=== PATIENT | female | born 1980 | race American Indian/Alaskan Native ===

== ENCOUNTER 2017-08-08 08:50 | Emergency (ER) | payer OTHER ==
[2017-08-08 08:56] VITALS: BMI 34.0
--- NOTE | 2017-08-08 09:30 | ED PDOC ---
Arrival/HPI - General Chief Complaint: Shortness Of Breath Time Seen by Provider: 08/08/17 09:22 Historian: Patient - History of Present Illness Narrative History of Present Illness (Text): 08/08/17 09:22 37 y/o female, pmh including htn, nkda, c/o coughing on and off for the past 30 days with chest pain and exertional shortness of breath. Pt. stated that she has chronic post nasal drip, constantly has nasal congestion and runny nose, associated with dry coughing but lately been having fever and chills along with shortness of breath and chest pain upon respiration, no recent traveling, not on control medication, no leg pain or swelling, no palpitation, no rash, no night sweat, no other medical or psychological complaints. Past Medical History - Provider Review Nursing Documentation Reviewed: Yes - Cardiac Hx Hypertension: Yes - Pulmonary Hx Respiratory Disorders: No - Neurological Hx Neurological Disorder: No - HEENT Hx HEENT Disorder: No - Renal Hx Renal Disorder: No - Endocrine/Metabolic Hx Endocrine Disorders: No - Hematological/Oncological Hx Anemia: Yes - Integumentary Hx Dermatological Disorder: No - Musculoskeletal/Rheumatological Hx Musculoskeletal Disorders: No - Gastrointestinal Hx Gastrointestinal Disorders: No - Genitourinary/Gynecological Hx Genitourinary Disorders: No - Psychiatric Hx Psychophysiologic Disorder: No Hx Substance Use: No Family/Social History - Physician Review Nursing Documentation Reviewed: Yes Family/Social History: Unknown Family HX Smoking Status: Never Smoked Hx Alcohol Use: No Hx Substance Use: No Allergies/Home Meds Allergies/Adverse Reactions: Allergies No Known Allergies Allergy (Verified 08/08/17 08:56) Home Medications: Home Meds Medication Instructions Recorded Confirmed Bisoprolol/HCTZ [Ziac 5 MG-6.25 MG] 2 tab PO DAILY 08/08/17 08/08/17 Review of Systems - Review of Systems Constitutional: Fatigue, Fevers Eyes: absent: Vision Changes ENT: absent: Hearing Changes Respiratory: SOB, Cough, Sputum. absent: Wheezing Cardiovascular: Chest Pain Gastrointestinal: absent: Abdominal Pain, Nausea, Vomiting Skin: absent: Rash, Pruritis Neurological: Headache. absent: Dizziness, Speech Changes Psychiatric: absent: Anxiety, Depression, Suicidal Ideation Physical Exam Vital Signs Reviewed: Yes Vital Signs Temp Pulse Resp BP Pulse Ox 08/08/17 11:24 100.1 F H 92 H 19 140/89 100 08/08/17 09:08 18 93 L 08/08/17 09:07 100.3 F H 95 H 18 153/100 H 93 L Temperature: Afebrile Blood Pressure: Hypertensive Pulse: Regular Respiratory Rate: Normal Appearance: Positive for: Well-Appearing, Non-Toxic, Comfortable Pain Distress: Moderate Mental Status: Positive for: Alert and Oriented X 3 - Systems Exam Head: Present: Atraumatic, Normocephalic Pupils: Present: PERRL Extroacular Muscles: Present: EOMI Conjunctiva: Present: Normal Ears: Present: NORMAL TM, Normal Canal. No: Erythema Mouth: Present: Moist Mucous Membranes, Normal Lips, Normal Tounge, Normal Teeth. No: Drooling, Trismus Pharnyx: No: ERYTHEMA, EXUDATE, TONSILS ENLARGED Nose (External): Present: Atraumatic. No: Abrasion, Contusion, Laceration Nose (Internal): Present: Normal Inspection, No Active Bleeding, Rhinorrhea. No : Septal Deviation, Septal Hematoma, Epistaxis Neck: Present: Normal Range of Motion, Trachea Midline. No: MIDLINE TENDERNESS , Bruit Respiratory/Chest: Present: Rales (Left lower lobes. ), Rhonchi (Left lower lobes. ). No: Respiratory Distress, Accessory Muscle Use, Wheezes, Retracting, Tachypneic Cardiovascular: Present: Regular Rate and Rhythm, Normal S1, S2. No: Murmurs Abdomen: No: Tenderness, Distention, Peritoneal Signs, Rebound, Guarding Back: Present: Normal Inspection. No: CVA Tenderness Upper Extremity: Present: Normal Inspection. No: Cyanosis, Edema Lower Extremity: Present: Normal Inspection. No: Edema Neurological: Present: GCS=15, CN II-XII Intact, Speech Normal, Motor Func Grossly Intact, Gait Normal, Memory Normal Skin: Present: Warm, Dry, Normal Color. No: Rashes Psychiatric: Present: Alert, Oriented x 3, Normal Insight, Normal Concentration Medical Decision Making ED Course and Treatment: 08/08/17 09:38 -labs/dimer/troponin -ekg -cxr -IVF/tylenol/toradol/benadryl -Observe and reassess 08/08/17 12:20 -Urine hcg is negative. -EKG: NSR @ 91 BPM, no ST elevation or depression, no T wave inversion, no previous ekg for comparison -Chest xray: Left lower lobe infiltrate -CTA No evidence of pulmonary embolus. Multi focal areas (2) of consolidation suspicious for pneumonia. Mild hilar and mediastinal adenopathy -Labs show no acute findings except MCV 69 and hgb 8.5 (admits heavy menstrual period and chronic anemia) -Troponin is negative -BNP is negative -Dimer is 261 (CTA added) -Pt. is vitally stable, headache and chest pain resolve, no wheezing, feeling much better, labs and radiology result discussed and request to be discharged home. Pt. stated that she is seeing her own obgyn for chronic heavy period with anemia which she has iron supplement at home which she doesn't take it consistently but she would now and also more red meat diet as she doesn't like it. Pt. has no abdominal pain and no black/dark color stool, refused guaiac examination. -Based on the CURB 65, no obvious indication for inpatient management for pneumonia -All labs/radiology result and vital signs discussed with Dr. Kennedy, he agreed on the discharge plan and treatment plan. -I discussed all the risk and benefits of taking levaquin including but not limited to prolong QT and achilles tendon rupture which she should avoid all exercise activity when taking this medication and stay hydrated, and the patient verbally expressed understanding. -Discharge home with levaquin, tessalon, motrin, albuterol, claritin, stay hydrated, bed rest, follow up with your own pmd within 2 days, avoid all exercise activity when taking levaquin and stay hydratedreturn to the ER for any new or worsening signs or symptoms. - Lab Interpretations Lab Results: 08/08/17 09:53 08/08/17 09:53 Lab Results 08/08/17 09:53: pO2 54, VBG pH 7.40, VBG pCO2 48.0, VBG HCO3 29.7 H, VBG Total CO2 31.2 H, VBG O2 Sat (Calc) 93.3 H, VBG Base Excess 4.0 H, VBG Potassium 3.5 L , Sodium 139.0, Chloride 105.0, Glucose 102, Lactate 1.0, FiO2 21.0, Venous Blood Potassium 3.5 L 08/08/17 09:53: Sodium 145, Chloride 104, Potassium 3.6, Carbon Dioxide 28, Anion Gap 16, BUN 13, Creatinine 0.7, Est GFR ( Amer) > 60, Est GFR (Non- Af Amer) > 60, Random Glucose 102, Calcium 8.5, Magnesium 2.0, Total Bilirubin 0.3, AST 25, ALT 30, Alkaline Phosphatase 65, Lactate Dehydrogenase 508, Total Creatine Kinase 140, Troponin I < 0.01, NT-Pro-B Natriuret Pep 329, Total Protein 7.3, Albumin 4.1, Globulin 3.2, Albumin/Globulin Ratio 1.3 08/08/17 09:53: D-Dimer, Quantitative 261 H 08/08/17 09:53: WBC 8.1, RBC 4.23, Hgb 8.5 L, Hct 29.3 L, MCV 69.3 L, MCH 20.1 L , MCHC 29.0 L, RDW 19.6 H, Plt Count 343, MPV 9.6, Gran % 68.6 H, Lymph % (Auto ) 19.0 L, [place] % (Auto) 7.0 H, Eos % (Auto) 5.2 H, Baso % (Auto) 0.2, Gran # 5.56, Lymph # (Auto) 1.5, [place] # (Auto) 0.6, Eos # (Auto) 0.4, Baso # (Auto) 0.02 I have reviewed the lab results: Yes - RAD Interpretation Radiology Orders: 08/08/17 09:33 CHEST TWO VIEWS (PA/LAT) [RAD] Stat 08/08/17 10:26 ANGIO CHEST PE PROTOCOL [CT] Stat Chest xray: HISTORY: cough and chest pain COMPARISON: No prior. TECHNIQUE: Chest PA and lateral FINDINGS: LUNGS: There is an infiltrate at the left lung base suspicious for pneumonia PLEURA: No significant pleural effusion identified. No pneumothorax apparent. CARDIOVASCULAR: Normal. OSSEOUS STRUCTURES: No significant abnormalities. VISUALIZED UPPER ABDOMEN: Normal. OTHER FINDINGS: None. IMPRESSION: Left lower lobe infiltrate CTA chest: PULMONARY ARTERIES: Unremarkable. No pulmonary embolism. AORTA: No acute findings. No thoracic aortic aneurysm. LUNGS: There are 2 separate areas of consolidation in the left lower lobe and lingular segment of the left upper lobe. Findings are consistent with a multi focal pneumonia. Prominent interstitial markings are also seen. PLEURAL SPACES: Unremarkable. No effusion or pneuomothorax. HEART: Unremarkable. No cardiomegaly. No significant pericardial effusion. LYMPH NODES: There is mild hilar and mediastinal adenopathy BONES, CHEST WALL: Unremarkable. 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 Multi focal areas of consolidation suspicious for pneumonia. Mild hilar and mediastinal adenopathy Umbrella Tipper Hand: Radiologist - Medication Orders Current Medication Orders: Discontinued Medications Acetaminophen (Tylenol 325mg Tab) 650 mg PO STAT STA Stop: 08/08/17 09:34 Last Admin: 08/08/17 10:00 Dose: 650 mg MAR Pain/Vitals Document 08/08/17 10:00 [email or web address] (Rec: 08/08/17 10:01 [email or web address] [id number]) Pain Reassessment Is This A Pain ReAssessment? No Sleep Is patient sleeping during reassessment? No Presence of Pain Presence of Pain Yes Pain Scale Used Pain Scale Used Numeric Location Pain Location Body Medical Equipment Sales Description Constant Intensity 7 Scale Used Numeric Pain Behavior Facial Grimacing Aggravating Factors Changing Position Alleviating Factors Medication Albuterol/Ipratropium (Duoneb 3 Mg/0.5 Mg (3 Ml) Ud) 3 ml IH STAT STA Stop: 08/08/17 09:34 Last Admin: 08/08/17 10:00 Dose: 3 ml Diphenhydramine HCl (Benadryl) 50 mg IVP STAT STA Stop: 08/08/17 09:37 Last Admin: 08/08/17 10:01 Dose: 50 mg IVP Administration Document 08/08/17 10:01 [email or web address] (Rec: 08/08/17 10:01 [email or web address] [id number]) Charges for Administration # of IVP Administrations 1 Sodium Chloride (Sodium Chloride 0.9%) 1,000 mls @ 999 mls/hr IV .Q1H1M STA Stop: 08/08/17 10:33 Last Admin: 08/08/17 09:56 Dose: 999 mls/hr eMAR Start Stop Document 08/08/17 09:56 [email or web address] (Rec: 08/08/17 10:00 [email or web address] [id number]) Intravenous Solution Start Date 08/08/17 Start Time 10:00 End Date 08/08/17 Ketorolac Tromethamine (Toradol) 30 mg IVP STAT STA Stop: 08/08/17 09:37 Last Admin: 08/08/17 10:01 Dose: 30 mg MAR Pain Assessment Document 08/08/17 10:01 [email or web address] (Rec: 08/08/17 10:01 [email or web address] [id number]) Pain Reassessment Is this a pain reassessment? No Sleep Is patient sleeping during reassessment? No Presence of Pain Presence of Pain Yes Pain Scale Used Pain Scale Used Numeric Location Pain Location Body Medical Equipment Sales Description Description Constant Intensity of Pain at present 7 Pain Behavior Facial Grimacing Alleviating Factors/Management Medication Techniques Alleviating Factors Medication IVP Administration Document 08/08/17 10:01 [email or web address] (Rec: 08/08/17 10:01 [email or web address] [id number]) Charges for Administration # of IVP Administrations 1 - PA / [employer] PRESS TENDER / Resident Statement MD/DO has reviewed & agrees with the documentation as recorded. Disposition/Present on Arrival - Present on Arrival Any Indicators Present on Arrival: No History of DVT/PE: No History of Uncontrolled Diabetes: No Urinary Catheter: No History of Decub. Ulcer: No History Surgical Site Infection Following: None - Disposition Have Diagnosis and Disposition been Completed?: Yes Diagnosis: Pneumonia, Anemia Disposition: HOME/ ROUTINE Disposition Time: 09:39 Patient Plan: Discharge Patient Problems: Current Active Problems Problem Status Onset Cervical lymphadenopathy Acute Sinusitis Acute Condition: IMPROVED Discharge Instructions (ExitCare): Pneumonia in Adults Additional Instructions: -Discharge home with levaquin, tessalon, motrin, albuterol, claritin, stay hydrated, bed rest, follow up with your own pmd within 2 days, avoid all exercise activity when taking levaquin and stay hydratedreturn to the ER for any new or worsening signs or symptoms. Prescriptions: Albuterol HFA [Ventolin HFA 90 mcg/actuation (8 g)] 2 puff IH [id number] PRN #1 in PRN Reason: Other Benzonatate [Tessalon Perles] 200 mg PO TID PRN #45 sgl PRN Reason: Other Ibuprofen [Motrin] 600 mg PO QID PRN #30 tab PRN Reason: Other levoFLOXacin [Levaquin] 750 mg PO DAILY #5 tab Loratadine [Claritin] 10 mg PO DAILY #10 tab Referrals: Jimmy Garcia MD [Staff Provider] - Follow up with primary Basilia Greene MD [Staff Provider] - Follow up with primary Kaylee Canchola MD [Staff Provider] - Follow up with primary Forms: WORK NOTE
[2017-08-08] MEDS ORDERED: Sodium Chloride 0.9% 1,000 ML IV STA (09:33)
[2017-08-08] MEDS ORDERED: Albuterol-Ipratrop 3 mg / 0.5 (3 ml) UD IH STA (09:33)
[2017-08-08] MEDS ORDERED: DiphenhydrAMINE 50 mg/ml Inj IVP STA (09:36)
[2017-08-08 10:08] LABS: BASO # 0.02 K/mm3 (0.0-2.0); BASO % 0.2 % (0.0-3.0); EOS # 0.4 (0.0-0.7); EOS % 5.2 % (1.5-5.0); GRAN # 5.56 (1.4-6.5); GRAN % 68.6 % (50.0-68.0); HEMOGLOBIN 8.5 g/dL (12.0-16.0); LYMPH # 1.5 (1.2-3.4); MEAN CELL VOLUME 69.3 fl (80.0-105.0); MEAN CORPUSCULAR HEMOGLOBIN 20.1 pg (25.0-35.0); MEAN PLATELET VOLUME 9.6 fl (7.0-11.0); MONO # 0.6 (0.1-0.6); RBC 4.23 10^6/uL (3.5-6.1); RED CELL DISTRIBUTION WIDTH 19.6 % (11.5-14.5); WHITE BLOOD COUNT 8.1 10^3/ul (4.5-11.0)
[2017-08-08 10:10] LABS: VENOUS BLOOD GAS PO2 54 mm/Hg (30-55)
[2017-08-08 10:13] LABS: ALB/GLOB RATIO 1.3 (1.1-1.8); ALBUMIN 4.1 g/dL (3.0-4.8); ALT/SGPT 30 U/L (7-56); AST/SGOT 25 U/L (14-36); BLOOD UREA NITROGEN 13 mg/dL (7-21); CALCIUM 8.5 mg/dL (8.4-10.5); GFR AFRICAN-AMERICAN > 60; GFR NON-AFRICAN AMERICAN > 60
[2017-08-08 10:25] LABS: B-TYPE NATRIURETIC PEPTIDE 329 pg/mL (0-450); TROPONIN I < 0.01 ng/mL
[2017-08-08] MEDS ORDERED: Iohexol 350 MG/100 ML VIAL ONE (10:32)
--- NOTE | 2017-08-08 11:02 | RAD ---
HISTORY: cough and chest pain COMPARISON: No prior. TECHNIQUE: Chest PA and lateral FINDINGS: LUNGS: There is an infiltrate at the left lung base suspicious for pneumonia PLEURA: No significant pleural effusion identified. No pneumothorax apparent. CARDIOVASCULAR: Normal. OSSEOUS STRUCTURES: No significant abnormalities. VISUALIZED UPPER ABDOMEN: Normal. OTHER FINDINGS: None. IMPRESSION: Left lower lobe infiltrate
[2017-08-08 11:25] VITALS: O2SAT 100
--- NOTE | 2017-08-08 11:32 | CT ---
PROCEDURE: CT Chest with contrast (Pulmonary Angiogram) HISTORY: cough x 1 month, sob/fever, elevated dimer COMPARISON: None available. TECHNIQUE: Axial computed tomography images were obtained of the chest in the pulmonary arterial phase of enhancement. Coronal and sagittal reformatted images were created and reviewed. Intravenous contrast dose: 100 cc of Omni 350 Radiation dose: Total exam DLP = 535 mGy-cm. This CT exam was performed using one or more of the following dose reduction techniques: Automated exposure control, adjustment of the mA and/or kV according to patient size, and/or use of iterative reconstruction technique. FINDINGS: PULMONARY ARTERIES: Unremarkable. No pulmonary embolism. AORTA: No acute findings. No thoracic aortic aneurysm. LUNGS: There are 2 separate areas of consolidation in the left lower lobe and lingular segment of the left upper lobe. Findings are consistent with a multi focal pneumonia. Prominent interstitial markings are also seen. PLEURAL SPACES: Unremarkable. No effusion or pneuomothorax. HEART: Unremarkable. No cardiomegaly. No significant pericardial effusion. LYMPH NODES: There is mild hilar and mediastinal adenopathy BONES, CHEST WALL: Unremarkable. 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 Multi focal areas of consolidation suspicious for pneumonia. Mild hilar and mediastinal adenopathy
[2017-08-08] MEDS ORDERED: Azithromycin 500MG/NS 250ml 500 MG/250 ML BAG IVPB STA (12:08)
[2017-08-08] MEDS ORDERED: cefTRIAXone 1 gm 1 GM/100 ML BAG IVPB STA (12:08)
--- NOTE | 2017-08-08 14:08 | CARD ---
APPROVED REPORT EKG Measurement Heart [id number] <Conclusion> Normal sinus rhythm LVH by voltage Nonspecific ST and T wave abnormality
[2017-08-08 14:57] VITALS: BP 143/89; PULSE 99; RESP 18; TEMP 99.9
== END 2017-08-08 14:58 | disposition home or self-care (01) ==
LOC: ED 08:50 → MERGE 08:50 → ED 14:58
DX: D64.9 Anemia, unspecified (principal); J18.9 Pneumonia, unspecified organism; I10 Essential (primary) hypertension
CPT/HCPCS: 71046; 71275; 80053; 82550; 82803; 83615; 83735; 83880; 84484; 85025; 85378; 93005; 94640; 96374; 96375; 99283; J0456; J0696; J1200; J1885; J7040; Q9967